=== PATIENT | male | born 2000 | race Caucasian/White ===

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

== ENCOUNTER 2021-01-07 02:52 | Emergency (ER) | payer OTHER ==
[~2021-01-07] VITALS: Ht 182.9 cm; Wt 79.4 kg
[2021-01-07] MEDS ORDERED: DOXYCYCLINE 10100 MG PO (04:40)
[2021-01-07 04:55] VITALS: BP 133/81
== END 2021-01-07 04:55 | disposition home or self-care (01) ==
LOC: M.ERS 02:52
DX: S91.111A Laceration without foreign body of right great toe without damage to nail, initial encounter (principal); S91.114A Laceration without foreign body of right lesser toe(s) without damage to nail, initial encounter; Z88.0 Allergy status to penicillin; Z88.1 Allergy status to other antibiotic agents; X19.XXXA Contact with other heat and hot substances, initial encounter; Y93.02 Activity, running; Y92.89 Other specified places as the place of occurrence of the external cause; Y99.8 Other external cause status